=== PATIENT | female | born 1960 | race Caucasian/White ===

== ENCOUNTER 2018-05-30 08:14 | Emergency (ER) | payer MEDICAID, OTHER ==
[~2018-05-30] VITALS: Ht 157.5 cm; Wt 63.5 kg
[2018-05-30 09:25] VITALS: BP 139/93
== END 2018-05-30 09:46 | disposition home or self-care (01) ==
LOC: ER 08:17
DX: M75.91 Shoulder lesion, unspecified, right shoulder (principal); R07.9 Chest pain, unspecified
CPT/HCPCS: 73030; 93005